=== PATIENT | male | born 1965 | race African-American/Black ===

== ENCOUNTER 2016-04-04 21:36 | Emergency (ER) | payer SELFPAY ==
[~2016-04-04] VITALS: Ht 195.6 cm; Wt 82.4 kg
[2016-04-04] MEDS ORDERED: MEDROL DOSEPAK4 MG PO (23:41)
[2016-04-04] MEDS ORDERED: LIDODERM 5% P1 PATCH TD (23:41)
[2016-04-04] MEDS ORDERED: TRAMADOL HCL50 MG PO (23:41)
[2016-04-04 23:54] VITALS: BP 147/93
== END 2016-04-04 23:55 | disposition home or self-care (01) ==
LOC: EME 21:36
DX: M54.5 Low back pain (principal); G89.29 Other chronic pain
CPT/HCPCS: 99281; 99284; J1885

== ENCOUNTER 2017-07-04 05:11 | Emergency (ER) | payer OTHER ==
[~2017-07-04] VITALS: Ht 195.6 cm; Wt 74.1 kg
[~2017-07-04 05:11] MED LIST: LIDODERM 5% P1 PATCH TD; MEDROL DOSEPAK4 MG PO; TRAMADOL HCL50 MG PO
[2017-07-04 06:10] LABS: BASOPHIL (%) 0.7 % (0-1); BASOPHIL COUNT 0.1 K/uL (0-0.1); EOSINOPHIL (%) 2.9 % (0-5); EOSINOPHIL COUNT 0.2 K/uL (0-0.3); HEMATOCRIT 36.9 % (38.0-50.0); HEMOGLOBIN 12.2 G/DL (12.5-16.6); IMMATURE GRANULOCYTE (%) 0.1 % (0.0-0.7); LYMPHOCYTE (%) 14.8 % (15-42); LYMPHOCYTE COUNT 1.1 K/uL (1.0-2.8); MCH 28.1 PG (29.0-34.0); MCHC 33.1 G/DL (30.0-36.0); MONOCYTE (%) 7.4 % (3-12); MONOCYTE COUNT 0.6 K/uL (0-0.8); NEUTROPHIL (%) 74.1 % (45-76); NEUTROPHIL COUNT 5.6 K/uL (1.8-6.4); PLATELET COUNT 211 K/uL (156-360); RBC DIS.WIDTH-CV 12.9 % (11.8-14.6); RBC DIS.WIDTH-SD 40.4 % (39-53); RED BLOOD COUNT 4.34 M/uL (4.00-5.50); WHITE BLOOD COUNT 7.6 K/uL (4.1-10.2)
[2017-07-04 06:24] LABS: ALBUMIN 3.8 g/dL (3.2-4.8); CHLORIDE 106 mEq/L (99-109); POTASSIUM 3.8 mEq/L (3.7-5.4); SODIUM 141 mEq/L (136-147)
[2017-07-04 06:26] LABS: GLUCOSE 119 mg/dL (70-99)
[2017-07-04 06:27] LABS: TOTAL PROTEIN 6.6 g/dL (6.4-8.3)
[2017-07-04 06:28] LABS: TOTAL BILIRUBIN 0.4 mg/dL (0.0-1.0)
[2017-07-04 06:29] LABS: SERUM ETHYL ALCOHOL < 10 mg/dL
[2017-07-04 06:30] LABS: ALKALINE PHOSPHATASE 84 IU/L (3-129); CREATININE 0.9 mg/dL (0.6-1.3); GFR ESTIMATE (CALCULATED) > 59 mL/min/ (58.99-99999)
[2017-07-04 06:31] LABS: UREA NITROGEN (BUN) 14 mg/dL (9-23)
[2017-07-04 06:32] LABS: AST (GOT) 25 IU/L (2-34)
[2017-07-04 06:33] LABS: ALT (GPT) 18 IU/L (3-49); CREATINE KINASE 292 IU/L (1-294); TOTAL CK 292 IU/L (1-294)
[2017-07-04 06:35] LABS: TROP-I INTERPRETATION NEGATIVE; TROPONIN-I < 0.01 ng/mL (0.0-0.30)
[2017-07-04 06:40] LABS: CK-MB 2.6 ng/mL (0.0-4.9); CKMB RELATIVE INDEX 0.9 (0.0-3.9)
[2017-07-04 11:50] LABS: AMPHETAMINE NEGATIVE (500 ng/mL); BARBITURATES NEGATIVE (200 ng/mL); BENZODIAZEPINES NEGATIVE (150 ng/mL); BUPRENORPHINE NEGATIVE (10 ng/mL); COCAINE PRESUMPTIVE POSITIVE (150 ng/mL); METHADONE NEGATIVE (200 ng/mL); METHAMPHETAMINE NEGATIVE (500 ng/mL); OPIATES (MORPHINE) PRESUMPTIVE POSITIVE (100 ng/mL); OXYCODONE NEGATIVE (100 ng/mL); PHENCYCLIDINE NEGATIVE (25 ng/mL); PROPOXYPHENE NEGATIVE (300 ng/mL); THC CANNABINOIDS NEGATIVE (50 ng/mL); TRICYCLIC ANTIDEPRESSANTS NEGATIVE (300 ng/mL)
[2017-07-04 14:09] VITALS: BP 178/104
== END 2017-07-04 14:52 ==
LOC: EME → EDBD 05:11 → EME 05:11
PROVIDERS: Emergency Medicine
DX: F19.10 Other psychoactive substance abuse, uncomplicated (principal); R41.82 Altered mental status, unspecified; R11.2 Nausea with vomiting, unspecified; R07.9 Chest pain, unspecified; R06.00 Dyspnea, unspecified
CPT/HCPCS: 70450; 71045; 80053; 82550; 82553; 84484; 84999; 85025; 93005; G0480; J2310; J2405